=== PATIENT | male | born 1960 | race Hispanic/Latino ===

== ENCOUNTER → 2019-12-26 | Outpatient (CLI) | payer OTHER | END | disposition home or self-care (01) | LOC: SHCH 15:16 | PROVIDERS: ATTEND Internal Medicine Cardiovascular Disease | DX: I51.7 Cardiomegaly (principal) | CPT/HCPCS: 93306 ==

== ENCOUNTER → 2020-01-01 | Outpatient (CLI) | payer OTHER | END | disposition home or self-care (01) | LOC: OIH 15:23 | PROVIDERS: ATTEND Internal Medicine Cardiovascular Disease | DX: Z13.6 Encounter for screening for cardiovascular disorders (principal) | CPT/HCPCS: 75571 ==

== ENCOUNTER → 2024-08-17 | Outpatient (CLI) | payer OTHER ==
--- NOTE | 2024-08-17 15:29 | HMCSR ---
APPROVED REPORT EXAM: Two-dimensional and M-mode echocardiogram with Doppler and color Doppler. INDICATION ICD: Premature ventricular complexes I49.3 2D Dimensions RVDd4.2 cmLVEF(%)65.1 (>50%)LVED Vol(simp.)105.1 mL IVSd0.8 (0.7-1.1cm)FS(%)36 %LVES Vol(simp.)47.0 mL LVDd5.0 (3.8-5.6cm)LA (2D)4.3 (1.6-4.0cm)LVEF(%, simp.)55 % PWd0.8 (0.7-1.1cm)Ao Root(2D)3.0 (2.0-3.7cm)LA ESV INDEX (BP)35.44 mL/m2 LVDs3.2 (2.5-4.0cm)LVOT diam2.2 (1.8-2.4cm) M-Mode Dimensions EPSS0.8 cm LA (MM)4.3 (1.6-4.0cm) Ao Root(MM)2.8 (2.0-3.7cm) Aortic Valve AoV Vmax1.8 m/Mildred Peak GR13.0 mmHgLVOT Vmax1.2 m/s AoV VTI0.4 mAo Mean GR7.3 mmHgLVOT VTI0.30 m ALFRED (VMAX)2.73 cm2AVA (VTI) 2.7 cm2 Mitral Valve MV E Vmax78.5 cm/sDECEL Pfgb856 ms MV A Vmax69.3 cm/sP 1/2 T64 ms E/A ratio1.1MVA (PHT)3.4 cm2 TDI E/E' Medial9.8E/E' Lateral6.9 Medial E' Peak V8.01 cm/sLateral E' Peak V11.44 cm/s Pulmonary Valve PV Vmax1.1 m/sPV Mean GR2.8 mmHg PV Peak GR5.1 mmHg Tricuspid Valve TR Vmax2.6 m/sRVSP26.6 mmHg TR Peak GR26.6 mmHg Left Ventricle The left ventricle is normal size. There is normal left ventricular wall thickness. LVEF is 50-55%. T he left ventricular diastolic function is normal. Right Ventricle The right ventricle is normal size. The right ventricular systolic function is normal. Atria The left atrium size is normal. The right atrium is mildly dilated. Aortic Valve The aortic valve is normal in structure. No aortic regurgitation is present. There is no aortic valvu lar stenosis. Mitral Valve The mitral valve is normal in structure. There is no evidence of significant mitral regurgitation. Th ere is no mitral valve stenosis. Tricuspid Valve The tricuspid valve is normal in structure. There is trace tricuspid valve regurgitation noted. Pulmonic Valve The pulmonary valve is normal in structure. There is no pulmonic valvular regurgitation. Great Vessels The aortic root is normal in size. Due to poor image quality, the IVC could not be assessed. Pericardium There is no pericardial effusion. Conclusion The left ventricle is normal size. LVEF is 50-55%. The left ventricular diastolic function is normal. The right ventricle is normal size. The right ventricular systolic function is normal. The left atrium size is normal. The right atrium is mildly dilated. There is no pericardial effusion.
== END | disposition home or self-care (01) ==
LOC: RAH 12:46
PROVIDERS: ATTEND Internal Medicine Cardiovascular Disease
DX: I51.7 Cardiomegaly (principal); I49.3 Ventricular premature depolarization
CPT/HCPCS: 93306

== ENCOUNTER 2024-09-18 05:54 | Day surgery (SDC) | payer OTHER ==
[2024-09-14 09:53] LABS: BASOPHILS # (AUTO) 0.06 K/uL (0.00-0.20); BASOPHILS % (AUTO) 0.6 % (0.0-5.0); EOSINOPHILS # (AUTO) 0.25 K/uL (0.00-0.70); EOSINOPHILS % (AUTO) 2.6 % (0.0-8.0); HEMATOCRIT 45.1 % (42-54); IMMATURE GRANULOCYTE ABSOLUTE 0.05 K/uL (0-1); LYMPHOCYTES # (AUTO) 2.4 K/uL (1.0-4.8); LYMPHOCYTES % (AUTO) 24.7 % (21.0-51.0); MEAN CORPUSCULAR HEMOGLOBIN 29.2 pg (27.0-33.0); MEAN CORPUSCULAR HGB CONC 33.5 g/dL (32.0-36.0); MEAN CORPUSCULAR VOLUME 87.1 fL (79-99); MONOCYTES # (AUTO) 0.8 K/uL (0.1-1.0); MONOCYTES % (AUTO) 8.5 % (3.0-13.0); NEUTROPHILS # (AUTO) 6.1 K/uL (1.8-7.7); NEUTROPHILS % (AUTO) 63.1 % (40.0-77.0); PLATELET COUNT (AUTO) 225 K/uL (130-400); RED BLOOD CELL COUNT(AUTO) 5.18 MIL/uL (4.50-6.20); RED CELL DISTRIBUTION WIDTH 14.4 % (11.0-15.5); WHITE BLOOD COUNT (AUTO) 9.7 K/uL (4.8-10.8)
[2024-09-14 10:02] LABS: POTASSIUM 4.4 mmol/L (3.5-5.1)
[2024-09-14 10:04] LABS: INR 0.99 (0.85-1.15); PROTHROMBIN TIME 10.5 SEC (9.6-11.6)
[2024-09-14 10:05] LABS: PARTIAL THROMBOPLASTIN TIME 28.4 SEC (26.3-35.5)
[2024-09-14 10:16] VITALS: BP 118/56; PULSE 53; RESP 14; TEMP 97.9
[~2024-09-18] VITALS: Ht 165.1 cm; Wt 92.9 kg
[2024-09-18] VITALS (10 sets, daily range): BP systolic 145–167; BP diastolic 70–88; PULSE 62–80; RESP 11–16; TEMP 97.2–97.8
[~2024-09-18 05:54] MED LIST: BENA-8 PO; CALC-909 PO; CALC0.253 PO; CLON0.1T PO; LEVO100T12 PO; METO-408 PO; SYMB8060 IH; albuterol IH
[2024-09-18] MEDS ORDERED: LIDOCAINE HCL 400MG/20ML VIAL ONE (07:40)
[2024-09-18] MEDS ORDERED: SODIUM BICARB 50MEQ 50ML VIAL 50 ML ONE (07:40)
[2024-09-18] MEDS ORDERED: FENTanyl CITRate PF 50 MCG/1 ML 2ML VIAL ONE ×3 (07:41→12:00)
[2024-09-18] MEDS ORDERED: HEParin 10,000 UNIT/10ML (1,000 UNIT/ML) VIAL ONE ×2 (07:41→09:14)
[2024-09-18] MEDS ORDERED: MIDAZOLAM HCL 1 MG/ML 2ML VIAL ONE ×6 (07:41→12:00)
[2024-09-18] MEDS ORDERED: HEParin-NS 1,000 UNIT/500 ML 1,000 ML IV ONE (07:41)
[2024-09-18] MEDS: 0.9%NACL 1000ML 1,000 ML IV SCH (07:45)
[2024-09-18] MEDS ORDERED: ISOPROTERENOL HCL 0.2 MG/ML AMP/VIAL/BAG ONE (09:31)
[2024-09-18] MEDS ORDERED: PROTamine SULFate 10 MG/ML 25ML VIAL IV ONE (11:54)
[2024-09-18] MEDS ORDERED: acetaMINOPHEN WITH coDEINE 1 TAB TAB PO PRN (13:00)
[2024-09-18] MEDS: acetaMINOPHEN 325 MG TAB PO PRN (13:22)
--- NOTE | 2024-09-18 14:00 | NUR ---
Patient voiced discomfort to back relief post Tylenol. Remains stable with vs wnl. No evidence of bleeding, bruising or hematoma. at bedside appearing supportive. Call light in reach.
--- NOTE | 2024-09-18 16:12 | NUR ---
Full and complete discharge instructions given to Patient and Family both verbally and in writing. Explained CARDIAC ABLATION procedure precautions and follow up. Femoral site clean and dry with no evidence of bruising, bleeding or hematoma. Patient ambulated in room independently. Voided to urinal. All questions answered. PIV removed with catheter tip intact. Home with Family W/C to POV.
== END 2024-09-18 16:10 | disposition home or self-care (01) ==
LOC: DAH 05:54
PROVIDERS: ATTEND Internal Medicine Cardiovascular Disease
DX: I49.3 Ventricular premature depolarization (principal); E03.9 Hypothyroidism, unspecified; I10 Essential (primary) hypertension; G47.33 Obstructive sleep apnea (adult) (pediatric); Z99.89 Dependence on other enabling machines and devices; Z88.1 Allergy status to other antibiotic agents; Z79.890 Hormone replacement therapy; Z88.0 Allergy status to penicillin; Z79.01 Long term (current) use of anticoagulants; Z88.8 Allergy status to other drugs, medicaments and biological substances; Z79.899 Other long term (current) drug therapy
CPT/HCPCS: 80048; 85025; 85610; 85730; 36415; 93654; 85347 ×7; C1894 ×2; C1732 ×3; C1893; A4649 ×2; C1760 ×2; J3010 ×3; J3490 ×3; J7030; J1644 ×3; J2250 ×6; A4215; A4222; A4221; A4663; A4216; A4606; J2720; A4223 ×3; 99156; 99157

== ENCOUNTER → 2024-11-28 | Outpatient (CLI) | payer OTHER ==
[~2024-11-28] MED LIST changes: +IOHEXOL-350 75 ML VIAL IV ONE
--- NOTE | 2024-11-28 12:24 | HMCIMG ---
EXAM: CT Abdomen and Pelvis With Intravenous Contrast CLINICAL HISTORY: 64-year-old male with abnormal radiologic findings on diagnostic imaging of the right kidney. TECHNIQUE: Axial computed tomography images of the abdomen and pelvis with intravenous contrast. Dose reduction technique was used including one or more of the following: automated exposure control, adjustment of mA and kV according to patient size, and/or iterative reconstruction. CONTRAST: With; 74 mL of IV contrast. COMPARISON: None provided. FINDINGS: LUNG BASES: No basilar airspace consolidation or pleural effusion. LIVER: Unremarkable. Cholecystectomy clips. GALLBLADDER AND BILE DUCTS: No gallbladder visualized. No ductal dilation. PANCREAS: Unremarkable. SPLEEN: Unremarkable. ADRENAL GLANDS: Unremarkable. KIDNEYS, URETERS, AND BLADDER: Small right renal cysts. Recommend follow-up with ultrasound. No hydronephrosis or nephrolithiasis. No ureteral calculi. There is thickening of the bladder adam suggesting chronic cystitis. STOMACH AND BOWEL: No obstruction. No wall thickening. Prostate calcification seen in bowel gas. APPENDIX: Normal appendix. PERITONEUM: No free fluid. No free air. LYMPH NODES: No lymphadenopathy. REPRODUCTIVE: Unremarkable as visualized. VASCULATURE: No aortic aneurysm. ABDOMINAL WALL AND SOFT TISSUES: Unremarkable. BONES: No fracture or suspicious osseous abnormality. IMPRESSION: 1. No acute process in the abdomen or pelvis. 2. Small right renal cysts. Recommend follow-up with ultrasound. 3. Bladder wall thickening suggesting chronic cystitis. /[place]
== END | disposition home or self-care (01) ==
LOC: RAH 08:58
PROVIDERS: ATTEND Internal Medicine
DX: N28.1 Cyst of kidney, acquired (principal); N42.0 Calculus of prostate; R93.421 Abnormal radiologic findings on diagnostic imaging of right kidney; Z90.49 Acquired absence of other specified parts of digestive tract
CPT/HCPCS: 74177; Q9967